=== PATIENT | male | born 1965 | race Two or more races ===

== ENCOUNTER 2025-02-16 07:15 | Inpatient (IN) | payer BC, OTHER ==
[~2025-02-16] VITALS: Ht 175.3 cm; Wt 119.8 kg
--- NOTE | 2025-02-16 07:31 | ECG ---
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
--- NOTE | 2025-02-16 07:36 | ED.PDOC ---
General HPI Comments This is a 59 year old male presenting to the ED with chief complaint of left flank pain. Patient reports that he has been experiencing left flank pain with associated LLQ abdominal pain and nausea since this morning when on the way to work. Patient relays that his pain is currently an 8/10. Patient denies any vomiting, dysuria, hematuria, fever, or chills. Chief Complaint: Back Pain Time Seen by MD: 07:34 Reviewed notes: Nurses Notes, Medications, Allergies Allergies: Coded Allergies: NO KNOWN ALLERGIES (Unverified , 02/16/25) Information Source: Patient Mode of Arrival: Ambulatory Severity: Moderate Timing: Hours Duration: Since onset Prehospital treatment: None Onset: Spontaneous Symptoms: None History of: UTI Location: Abdomen, (L)Flank associated signs and symptoms: Abdominal Pain, Nausea, Flank Pain Past Medical History Past Medical History (Other): Left leg DVT Surgical History: Tonsillectomy Surgical History (Other): Left knee surgery, left shoulder surgery Family History Family History: Reviewed,noncontributory to illness, Family hx of DM Social History Smoker: Non-Smoker Alcohol: Denies ETOH Use Drugs: Denies Drug Use Lives In: Home Constitutional: denies: chills, diaphoresis, fatigue, fever, malaise, sweats, weakness, others EENTM: denies: blurred vision, double vision, ear bleeding, ear discharge, ear drainage, ear pain, ear ringing, eye pain, eye redness, hearing loss, mouth pain, mouth swelling, nasal discharge, nose bleeding, nose congestion, nose pain, photophobia, tearing, throat pain, throat swelling, voice changes, others Respiratory: denies: cough, hemoptysis, orthopnea, SOB at rest, shortness of breath, SOB with excertion, stridor, wheezing, others Cardiovascular: denies: chest pain, dizzy spells, diaphoresis, Dyspnea on exertion, edema, irregular heart beat, left arm pain, lightheadedness, palpitations, PND, syncope, others Gastrointestinal: reports: abdominal pain, nausea; denies: abdomen distended, blood streaked bowels, constipated, diarrhea, dysphagia, difficulty swallowing, hematemesis, melena, poor appetite, poor fluid intake, rectal bleeding, rectal pain, vomiting, others Genitourinary: reports: flank pain; denies: burning, dysuria, frequency, hematuria, incontinence, penile discharge, penile sore, pain, testicle pain, testicle swelling, urgency, others Neurological: denies: dizziness, fainting, headache, left sided numbness, left sided weakness, numbness, paresthesia, pre-existing deficit, right sided numbness, right sided weakness, seizure, speech problems, tingling, tremors, weakness, others Musculoskeletal: denies: back pain, gout, joint pain, joint swelling, muscle pain, muscle stiffness, neck pain, others Integumetry: denies: bruises, change in color, change in hair/nails, dryness, laceration, lesions, lumps, rash, wounds, others Allergic/Immunocompromised: denies: Difficulty Healing, Frequent Infections, Hives, Itching, others Hematologic/Lymphatic: denies: anemia, blood clots, easy bleeding, easy bruising, swollen glands, others Endocrine: denies: excessive hunger, excessive sweating, excessive thirst, excessive urination, flushing, intolerance to cold, intolerance to heat, unexplained weight gain, unexplained weight loss, others Psychiatric: denies: anxiety, bipolar disorder, depression, hopeless, panic disorder, schizophrenia, sleepless, suicidal, others All Other Systems: Reviewed and Negative Physical Exam General Appearance: Moderate Distress HEENT: Normal ENT Inspection, Pharynx Normal, TMs Normal Neck: Full Range of Motion, Non-Tender, Normal, Normal Inspection Respiratory: Chest Non-Tender, Lungs Clear, No Accessory Muscle Use, No Respiratory Distress, Normal Breath Sounds Cardiovascular: No Edema, No JVD, No Murmur, No Gallop, Normal Peripheral Pul ses, Regular Rate/Rhythm Breast Exam: Deferred Gastrointestinal: No Organomegaly, Non Tender, No Pulsatile Mass, Normal Bowel Sounds, Soft Genitalia: Deferred Pelvic: Deferred Rectal: Deferred Extremities: No calf tenderness, Normal capillary refill, Normal inspection, Normal range of motion, Non-tender, No pedal edema Musculoskeletal : Location: Left Extremity Location: Back Apperance: Limited ROM, Tenderness: Moderate Neurologic: Alert, trauma therapist II-XII nml as Tested, No Motor Deficits, Normal Affect, Normal Mood, No Sensory Deficits Cerebellar Function: Normal Reflexes: Normal Skin: Dry, Normal Color, Warm Lymphatic: No Adenopathy Was a procedure done? Was a procedure done?: No EKG EKG : Pulse Rate (adult): 69 [place]: Normal Cardiac Rhythm: NSR Block: None Hypertrophy: None ST: Normal Differential Diagnosis Kidney stone (Female): N/A Kidney stone (Male): Cholangitis, Renal failure, Strain, Urinary obstruction, Urolithiasis, Urinary tract infection X-Ray, Labs, Meds, VS Vital Signs Date Time Temp Pulse Resp B/P (MAP) Pulse Ox O2 Delivery O2 Flow Rate FiO2 02/16/25 07:25 69 02/16/25 07:16 97.9 73 18 130/77 98 97.9 Lab Test 02/16/25 07:55 Range/Units White Blood Count 7.3 4.4-10.8 10^3/uL Red Blood Count 5.11 4.5-5.90 10^6/uL Hemoglobin 16.1 13.5-17.5 g/dL Hematocrit 47.2 41.0-53.0 % Mean Corpuscular Volume 92.4 80.0-100.0 fL Mean Corpuscular Hemoglobin 31.5 28.0-32.0 pg Mean Corpuscular Hemoglobin Concent 34.1 32.0-36.0 g/dL Red Cell Distribution Width 13.5 11.8-14.3 % Platelet Count 237 140-450 10^3/uL Mean Platelet Volume 7.2 6.9-10.8 fL Neutrophils (%) (Auto) 57.8 37.0-80.0 % Lymphocytes (%) (Auto) 27.6 10.0-50.0 % Monocytes (%) (Auto) 8.5 0.0-12.0 % Eosinophils (%) (Auto) 5.3 0.0-7.0 % Basophils (%) (Auto) 0.8 0.0-2.0 % Neutrophils # (Auto) 4.2 1.6-8.6 10 ^3/uL Lymphocytes # (Auto) 2.0 0.4-5.4 10 ^3/uL Monocytes # (Auto) 0.6 0-1.3 10 ^3/uL Eosinophils # (Auto) 0.4 0-0.8 10 ^3/uL Basophils # (Auto) 0.1 0-0.2 10 ^3/uL Nucleated Red Blood Cells 0.1 % Sodium Level 142 136-145 mmol/L Potassium Level 4.4 3.5-5.1 mmol/L Chloride Level 105 98-107 mmol/L Carbon Dioxide Level 30 20-31 mmol/L Anion Gap 7 5-15 Blood Urea Nitrogen 12 9-23 mg/dL Creatinine 1.00 0.700-1.30 mg/dL Glomerular Filtration Rate Calc 87 >90 mL/min BUN/Creatinine Ratio 12.0 10.0-20.0 Serum Glucose 109 H 74-106 mg/dL Calcium Level 9.1 8.7-10.4 mg/dL IV Hep-Lock was established The CBC and chemistry panel are within normal limits. The CAT scan of the abdomen and pelvis shows: IMPRESSION: 1. Parapelvic cysts in the left kidney, with the largest measuring up to 5.2 cm in greatest dimension, possibly causing some mass effect on the left renal pelvis. Correlate with clinical findings. If clinically indicated, CT urogram with delayed excretory phase images may be helpful to further characterize. No renal or ureteral calculi. 2. Scattered colonic diverticula without adjacent inflammatory changes to suggest diverticulitis. 3. Additional findings as described above. The patient is being given ketorolac 30 mg IV push for the pain The patient is being admitted at this time The patient's pain has been somewhat persistent and there is a concern about the mass effect on the left renal pelvis. Their further recommendations for CT urogram and this will be done by the [facility] hospitalist A nephrology consult will most likely be obtained Images Reviewed?: Images reviewed and evaluated by me Time of 1ST Reevaluation: 08:34 Reevaluation 1ST: Unchanged Patient Education/Counseling: Diagnosis, Treatment, Prognosis Family Education/Counseling: No Family Present SEPSIS Sepsis Screen Date sepsis recognized/suspect: Feb 16, 2025 Time Sepsis recognized/suspect: 715 Recent Procedure: No On Antibiotic Therapy: No Respiratory Rate >20: No Heart Rate >90: No Temp<36 C (96.8 F) or >38.3 C: No SBP <90 or MAP <65 mmHG: No New Acute Mental Status Change: No Is the patient on CPAP, BIPAP,: No Physician Orders Urinalysis (02/16/25 07:33) Sodium Chloride 0.9% (02/16/25 07:45) Ct Ab Pel Wo Con-No Oral Or Iv (02/16/25 07:33) Heplock Iv (02/16/25 07:33) Vital Signs Date Time Temp Pulse Resp B/P (MAP) Pulse Ox O2 Delivery O2 Flow Rate FiO2 02/16/25 07:25 69 02/16/25 07:16 97.9 73 18 130/77 98 97.9 Laboratory Tests Test 02/16/25 07:55 White Blood Count 7.3 10^3/uL (4.4-10.8) Departure 1 Departure Time of Disposition: 08:34 Impression: Primary Impression: Intractable abdominal pain Additional Impression: Renal mass Disposition: ADMITTED INPATIENT Admit to: Med Surg Condition: Fair Critical Care Note Critical Care Time?: No Stability Stability form required: Yes Unstable for transfer: ED Physician Assesment (Clinical assesment) Heart Score Heart Score: Heart Score Response (Comments) Value History N/A 0 EKG N/A 0 Age N/A 0 Risk Factors N/A 0 Troponin N/A 0 Total 0 I personally scribed for RIVERA AMES MD ([email or web address]) on 02/16/25 at 07:36. Electronically submitted by Serge Rodríguez ([email or web address]). I personally scribed for RIVERA AMES MD ([email or web address]) on 02/16/25 at 08:35. Electronically submitted by Serge Rodríguez ([email or web address]). RIVERA AMES MD Feb 16, 2025 07:36
[2025-02-16 08:14] LABS: Hematocrit 47.2 % (41.0-53.0); Hemoglobin 16.1 g/dL (13.5-17.5); Mean Corpuscular Hemoglobin 31.5 pg (28.0-32.0); Mean Corpuscular Volume 92.4 fL (80.0-100.0); Nucleated Red Blood Cells % 0.1 %
--- NOTE | 2025-02-16 08:16 | DVH ---
CLINICAL INFORMATION: Left flank pain. TECHNIQUE: Axial CT images of the abdomen and pelvis were obtained without IV contrast. Coronal and s agittal reformatted images were obtained, reviewed, and stored. Evaluation of the parenchymal organs is limited without IV contrast. Evaluation of the bowel and mesentery is limited without oral contras t. All CT scans at this medical facility are performed using dose modulation techniques as appropriat e to a performed exam including the following: Automated exposure control was utilized; adjustment of the MA and/or KV according to patient size; and use of iterative reconstruction technique. CTDIvol = 26.64 mGy DLP = 1603.44 mGy-cm COMPARISON: None FINDINGS: Lung bases: Lung bases are clear. Liver: Grossly unremarkable in its noncontrast enhanced appearance. No abnormal density or focal lesi on identified. Biliary: No calcified gallstones or biliary ductal dilatation. Spleen: Unremarkable. Pancreas: Grossly unremarkable in its noncontrast enhanced appearance. Adrenal glands: Unremarkable. No mass. Kidneys: No hydronephrosis. Likely parapelvic cysts in the left kidney, with the largest measuring u p to 5.2 cm in greatest dimension, possibly causing some mass effect in the left renal pelvis. No hyd ronephrosis and no renal or ureteral calculi. Aorta/Vascular: Minimal atherosclerotic calcification. No abdominal aortic aneurysm. Retroperitoneum: No mass or lymphadenopathy. Bowel/mesentery: No small bowel obstruction. No free air or free fluid. Appendix is visualized and ap pears unremarkable. Scattered colonic diverticula without adjacent inflammatory changes to suggest d iverticulitis. Pelvic organs: Grossly unremarkable. Bladder: Unremarkable. No mass. Abdominal wall: No mass or hernia. Bones: No acute fracture or suspicious intraosseous lesion. IMPRESSION: 1. Parapelvic cysts in the left kidney, with the largest measuring up to 5.2 cm in greatest dimension , possibly causing some mass effect on the left renal pelvis. Correlate with clinical findings. If c linically indicated, CT urogram with delayed excretory phase images may be helpful to further charact erize. No renal or ureteral calculi. 2. Scattered colonic diverticula without adjacent inflammatory changes to suggest diverticulitis. 3. Additional findings as described above.
[2025-02-16 08:20] LABS: Chloride 105 mmol/L (98-107); Potassium 4.4 mmol/L (3.5-5.1); Sodium 142 mmol/L (136-145)
[2025-02-16 08:21] LABS: Anion Gap 7 (5-15); Calcium 9.1 mg/dL (8.7-10.4); Carbon Dioxide 30 mmol/L (20-31)
[2025-02-16 08:26] LABS: BUN/Creatinine Ratio 12.0 (10.0-20.0); Blood Urea Nitrogen 12 mg/dL (9-23)
[2025-02-16 08:32] LABS: Glucose 109 mg/dL (74-106)
[2025-02-16] MEDS: SODIUM CHLORIDE 0.9% 1,000 ML IVB ONE (09:17)
[2025-02-16] MEDS: KETOROLAC TROMETH 30 MG/ML 1ML VIAL IV ONE (09:17)
[2025-02-16] MEDS: ONDANSETRON HCL 4 MG/2 ML VIAL IV ONE (09:17)
--- NOTE | 2025-02-16 15:10 | DVHINCON2 ---
Date of service: Feb 16, 2025 Referring Physician Hospitalist Reason for Consultation parapelvic cyst History of Present Illness History Source: Patient, RN Notes, MD Notes Exam Limitations: No limitations HPI 59 yo male c/o left flank pain stopping him from being able to work. CT shows a left parapelvic cyst 5 cm no stones. Review of Systems Gastrointestinal: Nausea, Abdominal Pain H&P Exam Vital Signs Vital Signs Date Time Temp Pulse Resp B/P (MAP) Pulse Ox O2 Delivery O2 Flow Rate FiO2 02/16/25 08:35 69 02/16/25 07:16 97.9 18 130/77 98 97.9 Labs/Xrays [place] [id number] Ph: [phone] DIAGNOSTIC IMAGING Diagnostic Imaging Report : [id number] Signed PATIENT: NELSON BRAN JRACCT: [id number] UNIT: [id number] : 1965 LOC: ER ROOM / BED: / AGE / SEX: 59 / M ADM STATUS: REG ER SERVICE 0733 ORDERING PHYSICIAN: RIVERA AMES MD PROCEDURE(s): ABPL - CT AB PEL WO CON-NO ORAL OR IV REASON: left flank pain ORDER NUMBER(s): [id number], ACCESSION NUMBER(s): [id number] CLINICAL INFORMATION: Left flank pain. TECHNIQUE: Axial CT images of the abdomen and pelvis were obtained without IV contrast. Coronal and sagittal reformatted images were obtained, reviewed, and stored. Evaluation of the parenchymal organs is limited without IV contrast. Evaluation of the bowel and mesentery is limited without oral contrast. All CT scans at this medical facility are performed using dose modulation techniques as appropriate to a performed exam including the following: Automated exposure control was utilized; adjustment of the MA and/or KV according to patient size; and use of iterative reconstruction technique. CTDIvol = 26.64 mGy DLP = 1603.44 mGy-cm COMPARISON: None FINDINGS: Lung bases: Lung bases are clear. Liver: Grossly unremarkable in its noncontrast enhanced appearance. No abnormal density or focal lesion identified. Biliary: No calcified gallstones or biliary ductal dilatation. Spleen: Unremarkable. Pancreas: Grossly unremarkable in its noncontrast enhanced appearance. Adrenal glands: Unremarkable. No mass. Kidneys: No hydronephrosis. Likely parapelvic cysts in the left kidney, with the largest measuring up to 5.2 cm in greatest dimension, possibly causing some mass effect in the left renal pelvis. No hydronephrosis and no renal or ureteral calculi. Aorta/Vascular: Minimal atherosclerotic calcification. No abdominal aortic aneurysm. Retroperitoneum: No mass or lymphadenopathy. Bowel/mesentery: No small bowel obstruction. No free air or free fluid. Appendix is visualized and appears unremarkable. Scattered colonic diverticula without adjacent inflammatory changes to suggest diverticulitis. Pelvic organs: Grossly unremarkable. Bladder: Unremarkable. No mass. Abdominal wall: No mass or hernia. Bones: No acute fracture or suspicious intraosseous lesion. IMPRESSION: 1. Parapelvic cysts in the left kidney, with the largest measuring up to 5.2 cm in greatest dimension, possibly causing some mass effect on the left renal pelvis. Correlate with clinical findings. If clinically indicated, CT urogram with delayed excretory phase images may be helpful to further characterize. No renal or ureteral calculi. 2. Scattered colonic diverticula without adjacent inflammatory changes to suggest diverticulitis. 3. Additional findings as described above. ATED BY: GONZALEZ CAMPOS DO DICTATED DATE/TIME: 02/16/25813 SIGNED BY: GONZALEZ CAMPOS DO SIGNED DATE/TIME: 02/16/25813 CC: Labs Test 02/16/25 07:55 Range/Units White Blood Count 7.3 4.4-10.8 10^3/uL Red Blood Count 5.11 4.5-5.90 10^6/uL Hemoglobin 16.1 13.5-17.5 g/dL Hematocrit 47.2 41.0-53.0 % Mean Corpuscular Volume 92.4 80.0-100.0 fL Mean Corpuscular Hemoglobin 31.5 28.0-32.0 pg Mean Corpuscular Hemoglobin Concent 34.1 32.0-36.0 g/dL Red Cell Distribution Width 13.5 11.8-14.3 % Platelet Count 237 140-450 10^3/uL Mean Platelet Volume 7.2 6.9-10.8 fL Neutrophils (%) (Auto) 57.8 37.0-80.0 % Lymphocytes (%) (Auto) 27.6 10.0-50.0 % Monocytes (%) (Auto) 8.5 0.0-12.0 % Eosinophils (%) (Auto) 5.3 0.0-7.0 % Basophils (%) (Auto) 0.8 0.0-2.0 % Neutrophils # (Auto) 4.2 1.6-8.6 10 ^3/uL Lymphocytes # (Auto) 2.0 0.4-5.4 10 ^3/uL Monocytes # (Auto) 0.6 0-1.3 10 ^3/uL Eosinophils # (Auto) 0.4 0-0.8 10 ^3/uL Basophils # (Auto) 0.1 0-0.2 10 ^3/uL Nucleated Red Blood Cells 0.1 % Sodium Level 142 136-145 mmol/L Potassium Level 4.4 3.5-5.1 mmol/L Chloride Level 105 98-107 mmol/L Carbon Dioxide Level 30 20-31 mmol/L Anion Gap 7 5-15 Blood Urea Nitrogen 12 9-23 mg/dL Creatinine 1.00 0.700-1.30 mg/dL Glomerular Filtration Rate Calc 87 >90 mL/min BUN/Creatinine Ratio 12.0 10.0-20.0 Serum Glucose 109 H 74-106 mg/dL Calcium Level 9.1 8.7-10.4 mg/dL Assessment/Plan Problem List: (1) Parapelvic renal cyst (2) Renal colic on left side Plan CT urogram consult IR for cyst drainage if pain not improving. Plan discussed with: JOYCE Barajas NP Feb 16, 2025 15:09
[2025-02-16] MEDS: IOHEXOL 300 MG/ML 100ML BOTTLE IJ ONE (15:58)
--- NOTE | 2025-02-16 16:12 | DVH ---
Exam: CT CT AB PEL WITH IV CON ONLY History: flank pain Comparison Study: CT CT AB PEL WO CON-NO ORAL OR IV on DOS: 02/16/25 TECHNIQUE: Multidetector CT of the abdomen was performed from lung bases to pubic symphysis. Imaging was performed without IV contrast. Axial, coronal and sagittal multiplanar reformats were obtained fr om the axial data set by the technologist. Radiation Dose Information: CT Dose: CTDI volume is 34.52 mGy. Dose-length product is 3424.81 mGy*cm Omnipaque 300: 95 mL. FINDINGS: Lung Bases: No acute or significant lung base finding. Normal heart size. No pleural or pericardial effusion. Liver: The liver is normal in size. No focal lesions. Gallbladder and Biliary Tree: Unremarkable Spleen: Unremarkable Pancreas: The pancreas is grossly normal in appearance. Adrenal Glands: Unremarkable Kidneys: 2 left parapelvic renal cysts. Largest measures 4 cm. Bladder: Grossly unremarkable for degree of distention. Bowel: The stomach is grossly normal in appearance. Small bowel and colon are normal in caliber and d istribution. The appendix is not visualized; however, no secondary findings of acute appendicitis id entified. Ascites: Absent Lymphadenopathy: No mesenteric, retroperitoneal or periportal lymphadenopathy. Abdominal Wall and Mesentery: Unremarkable. Vasculature: The visualized abdominal aorta is normal in size and caliber. Evaluation of abdominal a nd pelvic vessels is limited due to lack of intravenous contrast. Common origin celiac and SMA. Pelvic Organs: Prostate measures 4.9 x 4.4 cm is partially calcified. Prominent seminal vesicles. Musculoskeletal: No aggressive focal bony lesions, acute fractures or dislocation. Soft tissues: Unremarkable IMPRESSION: 1. 2 left paramedian pelvic cysts largest measures 4 cm. 2. No nephrolithiasis or hydronephrosis bilaterally. 3. No ureteral dilatation bilaterally. 4. No bladder calculi. 5. Mild levoscoliosis. 6. 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 7. Common origin of the Celiac and SMA. Radiation optimization: All CT scans at this facility use at least one of these dose optimization isreal hniques: automated exposure control mA and/or kV adjustment per patient size (includes targeted exam s where dose is matched to clinical indication) or iterative reconstruction.
[2025-02-16] MEDS ORDERED: MORPHINE SULFATE INJ 2 MG/ml SYRG IV PRN (16:30)
--- NOTE | 2025-02-16 16:39 | DVHHP2 ---
History of Present Illness Reason for Visit: Left flank pain for one day History of Present Illness 59-year-old male with a no significant past medical history presented to the hospital with a left flank pain worsening for last one day. Patient was stated that pain started last night in the left flank area. This morning he thought it might be just muscle cramping tried to stretch it out and took two extra- strength Tylenol but pain did not relieve eventually he presented to this hospital. CT abdomen and pelvis was done which shows left pelvic cyst pressing onto the left renal pelvis. No evidence of any ureteric stone. Patient is denying any fevers chills denies any previous episode of similar kind. Past Surgical History: Other (Left shoulder surgery.), Total knee replacement Family History: None Smoke: No ALCOHOL: none Review of Systems Review of Systems Twelve review of system were negative except mentioned above. Allergies: Coded Allergies: NO KNOWN ALLERGIES (Unverified , 02/16/25) Exam Vital Signs Vital Signs Date Time Temp Pulse Resp B/P (MAP) Pulse Ox O2 Delivery O2 Flow Rate FiO2 02/16/25 08:35 69 02/16/25 07:16 97.9 18 130/77 98 97.9 Exam HEENT pupils are reactive Neck is supple CV is S1-S2 regular rate and rhythm Respiratory diminished breath sound bases GI posterior bowel sound, left CVA tenderness Extremity no edema BALE COVERER no motor deficits Labs/Xrays Labs Test 02/16/25 07:55 Range/Units White Blood Count 7.3 4.4-10.8 10^3/uL Red Blood Count 5.11 4.5-5.90 10^6/uL Hemoglobin 16.1 13.5-17.5 g/dL Hematocrit 47.2 41.0-53.0 % Mean Corpuscular Volume 92.4 80.0-100.0 fL Mean Corpuscular Hemoglobin 31.5 28.0-32.0 pg Mean Corpuscular Hemoglobin Concent 34.1 32.0-36.0 g/dL Red Cell Distribution Width 13.5 11.8-14.3 % Platelet Count 237 140-450 10^3/uL Mean Platelet Volume 7.2 6.9-10.8 fL Neutrophils (%) (Auto) 57.8 37.0-80.0 % Lymphocytes (%) (Auto) 27.6 10.0-50.0 % Monocytes (%) (Auto) 8.5 0.0-12.0 % Eosinophils (%) (Auto) 5.3 0.0-7.0 % Basophils (%) (Auto) 0.8 0.0-2.0 % Neutrophils # (Auto) 4.2 1.6-8.6 10 ^3/uL Lymphocytes # (Auto) 2.0 0.4-5.4 10 ^3/uL Monocytes # (Auto) 0.6 0-1.3 10 ^3/uL Eosinophils # (Auto) 0.4 0-0.8 10 ^3/uL Basophils # (Auto) 0.1 0-0.2 10 ^3/uL Nucleated Red Blood Cells 0.1 % Sodium Level 142 136-145 mmol/L Potassium Level 4.4 3.5-5.1 mmol/L Chloride Level 105 98-107 mmol/L Carbon Dioxide Level 30 20-31 mmol/L Anion Gap 7 5-15 Blood Urea Nitrogen 12 9-23 mg/dL Creatinine 1.00 0.700-1.30 mg/dL Glomerular Filtration Rate Calc 87 >90 mL/min BUN/Creatinine Ratio 12.0 10.0-20.0 Serum Glucose 109 H 74-106 mg/dL Calcium Level 9.1 8.7-10.4 mg/dL SEPSIS Sepsis Screen Date sepsis recognized/suspect: Feb 16, 2025 Time Sepsis recognized/suspect: 715 Recent Procedure: No On Antibiotic Therapy: No Respiratory Rate >20: No Heart Rate >90: No Temp<36 C (96.8 F) or >38.3 C: No SBP <90 or MAP <65 mmHG: No New Acute Mental Status Change: No Is the patient on CPAP, BIPAP,: No Physician Orders Ct Ab Pel With Iv Con Only (02/16/25 14:50) Admit (02/16/25 16:30) Code Status (02/16/25 16:30) 2 Gm Sodium Diet (02/16/25 Dinner) 0.9% Ns 1000 Ml (02/16/25 16:30) Hydrocodone-Acet 5/325mg Tab ([place] /32 (02/16/25 16:30) Ondansetron Hcl (Zofran) (02/16/25 16:30) Condition: Stable (02/16/25 16:30) Acetaminophen Tablet (Tylenol Tablet) (02/16/25 16:30) Morphine Sulfate Injection (02/16/25 16:30) * Urology Consult (02/16/25 16:30) * Radiologist Consult (02/16/25 16:30) Vital Signs Date Time Temp Pulse Resp B/P (MAP) Pulse Ox O2 Delivery O2 Flow Rate FiO2 02/16/25 08:35 69 Laboratory Tests Test 02/16/25 07:55 White Blood Count 7.3 10^3/uL (4.4-10.8) Medications Medications Dose Ordered Sig/Judit Route Start Time Stop Time Status Last Admin Dose Admin Ketorolac Tromethamine 30 mg ONCE ONCE IV 02/16/25 07:45 02/16/25 07:46 DC 02/16/25 09:17 30 MG Ondansetron HCl 4 mg ONCE ONCE IV 02/16/25 07:45 02/16/25 07:46 DC 02/16/25 09:17 4 MG Sodium Chloride 1,000 ml @ 1,000 mls/hr Q1H ONCE IVB 02/16/25 07:45 02/16/25 08:44 DC 02/16/25 09:17 1,000 MLS/HR Assessment/Plan Assessment/Plan 59-year-old male with a 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 Left flank pain secondary to left pelvic cyst pressing onto left renal pelvis 2. Left pelvic cyst with a mass effect on left renal pelvis 3. History of DVT currently on Xarelto -admit to med surge, hold Xarelto, urology consultation, IR consultation for drainage of cyst as is symptomatic. Plan discussed with: Patient, Spouse My Orders Orders - SANDRA RODRIGUEZ MD Procedure Category Date Status Time Admit ADMIT 02/16/25 Verified 16:30 Code Status CODE 02/16/25 Verified 16:30 2 Gm Sodium Diet DIET 02/16/25 Verified Dinner 0.9% Ns 1000 Ml PHA 02/16/25 Verified 16:30 Hydrocodone-Acet PHA 02/16/25 Verified 5/325mg Tab ([place] 16:30 Ondansetron Hcl PHA 02/16/25 Verified (Zofran) 16:30 Condition: Stable HAILEE 02/16/25 Verified 16:30 Acetaminophen Tablet PHA 02/16/25 Verified (Tylenol Tablet) 16:30 Morphine Sulfate PHA 02/16/25 Verified Injection 16:30 * Urology Consult CONS 02/16/25 Verified 16:30 * Radiologist Consult CONS 02/16/25 Verified 16:30 Date of Service: Feb 16, 2025 Billing Provider: SANDRA RODRIGUEZ MD Common Visit Codes: NOT BILLABLE SANDRA RODRIGUEZ MD Feb 16, 2025 16:39
[2025-02-16] MEDS: SODIUM CHLORIDE 0.9% 1,000 ML IV SCH (17:20)
[2025-02-16 17:23] LABS: INR 1.09 (0.9-1.15); Prothrombin Time 11.5 sec (9.3-11.8)
[2025-02-16 19:15] LABS: Urine Protein, UAD Negative (Negative)
[2025-02-17] VITALS (8 sets, daily range): BP systolic 110–152; BP diastolic 79–102; PULSE 65–80; RESP 17–20; TEMP 36.4; O2SAT 94–99
[2025-02-17] MEDS ORDERED: RIV20T PO (00:14)
[2025-02-17] MEDS: HYDROcodone-ACET 5/325MG TAB PO PRN (11:39)
[2025-02-17] MEDS: ONDANSETRON HCL 4 MG/2 ML VIAL IV PRN (11:39)
--- NOTE | 2025-02-17 16:46 | DVHDS2 ---
Discharge Summary Date of Admission Feb 16, 2025 at 16:30 Date of Discharge: Feb 17, 2025 Labs/Diagnostic Data: Laboratory Results Test 02/16/25 16:48 02/16/25 15:10 02/16/25 07:55 Prothrombin Time 11.5 sec (9.3-11.8) Prothrombin Time INR 1.09 (0.9-1.15) Urine Color Light-yellow (Yellow) Urine Clarity Clear (Clear) Urine pH 6.0 (5.0-9.0) Urine Specific [place] 1.038 (1.001-1.035) Urine Protein Negative (Negative) Urine Ketones Negative (Negative) Urine Blood Negative /uL (Negative) Urine Nitrite Negative (Negative) Urine Bilirubin Negative (Negative) Urine Urobilinogen Normal mg/dL (Negative) Urine Leukocyte Esterase Negative /uL (Negative) Urine RBC 2 /hpf (0 - 3) Urine Microscopic WBC 2 /HPF (0-3) Urine Squamous Epithelial Cells Few /hpf (<5) Urine Bacteria None seen /hpf (None Seen) Urine Glucose Normal mg/dL (Normal) White Blood Count 7.3 10^3/uL (4.4-10.8) Red Blood Count 5.11 10^6/uL (4.5-5.90) Hemoglobin 16.1 g/dL (13.5-17.5) Hematocrit 47.2 % (41.0-53.0) Mean Corpuscular Volume 92.4 fL (80.0-100.0) Mean Corpuscular Hemoglobin 31.5 pg (28.0-32.0) Mean Corpuscular Hemoglobin Concent 34.1 g/dL (32.0-36.0) Red Cell Distribution Width 13.5 % (11.8-14.3) Platelet Count 237 10^3/uL (140-450) Mean Platelet Volume 7.2 fL (6.9-10.8) Neutrophils (%) (Auto) 57.8 % (37.0-80.0) Lymphocytes (%) (Auto) 27.6 % (10.0-50.0) Monocytes (%) (Auto) 8.5 % (0.0-12.0) Eosinophils (%) (Auto) 5.3 % (0.0-7.0) Basophils (%) (Auto) 0.8 % (0.0-2.0) Neutrophils # (Auto) 4.2 10 ^3/uL (1.6-8.6) Lymphocytes # (Auto) 2.0 10 ^3/uL (0.4-5.4) Monocytes # (Auto) 0.6 10 ^3/uL (0-1.3) Eosinophils # (Auto) 0.4 10 ^3/uL (0-0.8) Basophils # (Auto) 0.1 10 ^3/uL (0-0.2) Nucleated Red Blood Cells 0.1 % Sodium Level 142 mmol/L (136-145) Potassium Level 4.4 mmol/L (3.5-5.1) Chloride Level 105 mmol/L (98-107) Carbon Dioxide Level 30 mmol/L (20-31) Anion Gap 7 (5-15) Blood Urea Nitrogen 12 mg/dL (9-23) Creatinine 1.00 mg/dL (0.700-1.30) Glomerular Filtration Rate Calc 87 mL/min (>90) BUN/Creatinine Ratio 12.0 (10.0-20.0) Serum Glucose 109 mg/dL (74-106) Calcium Level 9.1 mg/dL (8.7-10.4) Other Laboratory Tests 02/16/25 07:55 Brief Hx & Hospital Course: 59-year-old male with a 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 Patient does have known history of DVT currently on Xarelto. Patient was eventually admitted urology saw the patient. CT urogram shows same evidence of cyst which may not be causing the pain it might be just muscle ache. Patient was discharged under stable condition with a close follow up as an outpatient with the PCP and Urology and return to ER if there is any recurrent pain or any concern. 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 Left flank pain secondary to left pelvic cyst pressing onto left renal pelvis 2. Left pelvic cyst with a mass effect on left renal pelvis 3. History of DVT currently on Xarelto Discharge Disposition: Home SNF Discharge Will this Physician continue t: No Discharge Instruct/Medications Diet: Cardiac 2g Na,low cholest Activity: No Restrictions, As Tolerated Follow Up/Referral: Follow up with the PCP in one week Follow up with the Urology Ishmael Coreas in two weeks Medications: Resume home medications. Continued Medications: Rivaroxaban (Xarelto Tablet) 20 Mg Tb 1 TAB PO DAILY Scheduled Rivaroxaban (Xarelto Tablet), 1 TAB PO DAILY, (Reported) Discharge Statement: "Patient was advised to return to the ER or call 911 if any headaches, dizziness, shortness of breath, chest pain, abdominal pain, bleeding, fevers, or worsening of medical condition. Patient was counseled about treatment plan, medications, possible side effects, patientverbalized understanding. All questions were answered to the best of my ability. 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 Left flank pain secondary to left pelvic cyst pressing onto left renal pelvis 2. Left pelvic cyst with a mass effect on left renal pelvis 3. History of DVT currently on Xarelto Date of Service: Feb 17, 2025 Billing Provider: SANDRA RODRIGUEZ MD Common Visit Codes: 10444-EUU/OBS DISCH DAY >30min SANDRA RODRIGUEZ MD Feb 17, 2025 16:46
[2025-02-17] MEDS: ACETAMINOPHEN 325 MG TAB PO PRN (16:59)
== END 2025-02-17 17:45 | disposition home or self-care (01) | DRG 700 ==
LOC: ER 07:15 → OVERFLOW 16:30 → WEST WING 02-17 06:37
PROVIDERS: ADMIT Internal Medicine; ATTEND Internal Medicine
DX: N28.1 Cyst of kidney, acquired (principal); N28.89 Other specified disorders of kidney and ureter; K57.30 Diverticulosis of large intestine without perforation or abscess without bleeding; Z96.659 Presence of unspecified artificial knee joint; Z86.718 Personal history of other venous thrombosis and embolism; Z83.3 Family history of diabetes mellitus
CPT/HCPCS: 36415; 74176; 74177; 80048; 81001; 85025; 85610; 93005; G0378; J1885; J2405